=== PATIENT | female | born 1995 | race Caucasian/White ===

== ENCOUNTER 2018-11-10 06:31 | Day surgery (SDC) | payer MEDICAID ==
[~2018-11-10] VITALS: Ht 160 cm; Wt 63.5 kg
[2018-11-10] MEDS ORDERED: SKIN ADHESIVE 0.7 GM EA TOP ONE (07:04)
[2018-11-10] MEDS ORDERED: BUPIVACAINE HCL/PF 0.5% (5MG/ML) 10ML ONE (07:05)
[2018-11-10] MEDS ORDERED: BACITRACIN 50,000 UNITS/VIAL ONE (07:05)
[2018-11-10] MEDS ORDERED: NORMAL SALINE 0.9% 10 ML SYR ONE (07:05)
[2018-11-10] MEDS ORDERED: LACTATED RINGERS 1,000 ML IV SCH (07:15)
[2018-11-10 08:11] LABS: UCG SCREEN NEGATIVE
[2018-11-10] MEDS ORDERED: PROPOFOL 200MG/20ML VIAL IV ONE (08:39)
[2018-11-10] MEDS ORDERED: ROCURONIUM BROMIDE 10MG/ML VIAL 5ML IV ONE (08:39)
[2018-11-10] MEDS ORDERED: FENTANYL CITRATE/PF 50MCG/ML 2ML VIAL ONE ×2 (08:39→08:51)
[2018-11-10] MEDS ORDERED: MIDAZOLAM HCL 2 MG/2 ML VIAL ONE (08:39)
[2018-11-10] MEDS ORDERED: NEOSTIGMINE METHYLSULFATE 1MG/ML 10 ML VIAL ONE (08:39)
[2018-11-10] MEDS ORDERED: METOCLOPRAMIDE HCL 10MG/2ML VIAL ONE (08:40)
[2018-11-10] MEDS ORDERED: LIDOCAINE HCL/PF 1% 10 MG/ML 5ML VIAL ONE (08:40)
[2018-11-10] MEDS ORDERED: SUCCINYLCHOLINE CHLORIDE 200MG/10ML IV ONE (08:40)
[2018-11-10] MEDS ORDERED: ONDANSETRON HCL 4MG/2ML INJ ONE (08:40)
[2018-11-10] MEDS ORDERED: CEFAZOLIN SODIUM 1000MG/VIAL ONE (08:40)
[2018-11-10] MEDS ORDERED: GLYCOPYRROLATE 0.2 MG/ML 2ML VIAL ONE (08:40)
[2018-11-10] MEDS ORDERED: SODIUM CHLORIDE 0.9% 10ML VIAL ONE (08:40)
[2018-11-10] MEDS ORDERED: SODIUM CHLORIDE 0.9% 1,000 ML IV ONE (09:37)
[2018-11-10] MEDS ORDERED: CHOL500051 PO (09:43)
[2018-11-10] MEDS ORDERED: MEPERIDINE HCL/PF 25MG/ML CPJ IV PRN (09:45)
[2018-11-10] MEDS ORDERED: MORPHINE SULFATE 2 MG/ML CPJ (NOT FOR IM USE) IV PRN (09:45)
[2018-11-10] MEDS ORDERED: ONDANSETRON HCL 4MG/2ML INJ IV PRN (09:45)
[2018-11-10] MEDS ORDERED: HYDROMORPHONE HCL/PF 2MG/ML CPJ IV PRN (09:45)
== END 2018-11-10 10:45 | disposition home or self-care (01) ==
LOC: OR 06:31
PROVIDERS: ATTEND Surgery
DX: N60.11 Diffuse cystic mastopathy of right breast (principal); Q83.8 Other congenital malformations of breast; Z98.890 Other specified postprocedural states; Z98.891 History of uterine scar from previous surgery; Z79.899 Other long term (current) drug therapy
CPT/HCPCS: 19120; 81025; 88305; G0168; J0330; J0690; J2250; J2405; J2704; J2765; J3010; J3490; J2710